=== PATIENT | female | born 1955 | race Caucasian/White ===

== ENCOUNTER 2017-12-29 15:05 | Emergency (ER) | payer OTHER ==
[2017-12-29 15:24] VITALS: BP 154/88; PULSE 98; RESP 20; TEMP 99.7; O2SAT 96
[2017-12-29] MEDS ORDERED: Lidocaine 1% Inj (20ml) INFIL STA (16:13)
[2017-12-29] MEDS ORDERED: Tetanus/Diphtheria Toxoids 0.5 ml Syringe IM ONE ×2 (16:13→16:37)
[2017-12-29] MEDS ORDERED: Bacitracin 500 Units/gm Oint Foilpak UD TOP ONE (16:14)
[2017-12-29] MEDS ORDERED: Lidocaine 1% Inj (20ml) ONE (16:34)
[2017-12-29] MEDS ORDERED: Bacitracin 500 Units/gm Oint Foilpak UD ONE (16:37)
--- NOTE | 2017-12-29 17:47 | CT ---
PROCEDURE: CT HEAD WITHOUT CONTRAST. HISTORY: s.p fall, lac to face COMPARISON: None available. TECHNIQUE: Axial computed tomography images were obtained through the head/brain without intravenous contrast. Radiation dose: Total exam DLP = 1126.98 mGy-cm. This CT exam was performed using one or more of the following dose reduction techniques: Automated exposure control, adjustment of the mA and/or kV according to patient size, and/or use of iterative reconstruction technique. FINDINGS: HEMORRHAGE: No intracranial hemorrhage. BRAIN: No mass effect or edema. The umanzor-white matter differentiation appears intact. Please note that MRI with diffusion imaging is more sensitive in the detection of acute ischemic event. VENTRICLES: No hydrocephalus. CALVARIUM: Unremarkable. PARANASAL SINUSES: Unremarkable as visualized. No significant inflammatory changes. MASTOID AIR CELLS: Unremarkable as visualized. No inflammatory changes. OTHER FINDINGS: Deviated nasal septum. IMPRESSION: No acute intracranial pathology identified.
--- NOTE | 2017-12-29 18:04 | C.PDOC ---
History Of Present Illness 62 y/o female brought in by [facility] for evaluation status post missing step and falling forward while walking up steps at work. Patient sustained laceration to right side of head secondary to hitting concrete step. Patient denies loc, vision changes, dizziness, nausea or vomiting. Time Seen by Provider: 12/29/17 16:02 Chief Complaint (Nursing): Abnormal Skin Integrity History Per: Patient History/Exam Limitations: no limitations Onset/Duration Of Symptoms: Hrs Current Symptoms Are (Timing): Still Present Past Medical History Reviewed: Historical Data, Nursing Documentation, Vital Signs Vital Signs: Last Vital Signs Temp 99.7 F H 12/29/17 15:22 Pulse 98 H 12/29/17 15:22 Resp 20 12/29/17 15:22 BP 154/88 H 12/29/17 15:22 Pulse Ox 96 12/29/17 19:05 - Medical History PMH: No Chronic Diseases Surgical History: No Surg Hx Family History: States: No Known Family Hx - Social History Hx Alcohol Use: No Hx Substance Use: No Review Of Systems Eyes: Negative for: Vision Change Cardiovascular: Negative for: Chest Pain Gastrointestinal: Negative for: Nausea, Vomiting Skin: Negative for: Rash Neurological: Positive for: Headache. Negative for: Weakness, Numbness Physical Exam - Physical Exam Appears: Non-toxic, No Acute Distress Skin: Warm, Dry, No Rash Head: Normacephalic, Tenderness (Mild to forehead), Laceration (3cm linear curved to right side of forehead above eyebrow. No active bleeding. ) Eye(s): bilateral: Normal Inspection, PERRL, EOMI Ear(s): Bilateral: Normal Nose: Normal, No Discharge, No Epistaxis, No Tenderness Oral Mucosa: Moist Teeth: Normal Dentition, No Loose, No Avulsed Neck: Normal ROM, Supple Cardiovascular: Rhythm Regular, No Murmur Respiratory: Normal Breath Sounds, No Rales, No Rhonchi, No Stridor, No Wheezing Extremity: Bilateral: Atraumatic, Normal Color And Temperature, Normal ROM Neurological/Psych: Oriented x3, Normal Speech, Normal Motor, Normal Sensation Gait: Steady ED Course And Treatment O2 Sat by Pulse Oximetry: 96 (RA) Pulse Ox Interpretation: Normal - CT Scan/US CT head Other Rad Studies (CT/US): Read By Radiologist, Radiology Report Reviewed CT/US Interpretation: PROCEDURE: CT HEAD WITHOUT CONTRAST. HISTORY: s.p fall , lac to face. COMPARISON: None available. TECHNIQUE: Axial computed tomography images were obtained through the head/brain without intravenous contrast. Radiation dose: Total exam DLP = 1126.98 mGy-cm. This CT exam was performed using one or more of the following dose reduction techniques: Automated exposure control, adjustment of the mA and/or kV according to patient size, and/or use of iterative reconstruction technique. FINDINGS: HEMORRHAGE: No intracranial hemorrhage. BRAIN: No mass effect or edema. The umanzor-white matter differentiation appears intact. Please note that MRI with diffusion imaging is more sensitive in the detection of acute ischemic event. VENTRICLES : No hydrocephalus. CALVARIUM: Unremarkable. PARANASAL SINUSES: Unremarkable as visualized. No significant inflammatory changes. MASTOID AIR CELLS: Unremarkable as visualized. No inflammatory changes. OTHER FINDINGS: Deviated nasal septum. IMPRESSION: No acute intracranial pathology identified. Laceration - Laceration Repair face right side Wound Length (In cm): 3 Description Of Wound: Linear, Clean Wound Cleansed With: Sterile Saline Anesthesia: Lidocaine 1% Wound Examination: Irrigated With Saline, No FB With Wound Exploration Wound Closure: Suture Suture Technique And Material Used: Interrupted (3), Nylon (5-0) Wound Complexity: Simple Medical Decision Making Medical Decision Making: Impression: head injury and laceration to face Plan: * Tylenol * Tetanus * Lac repair * CT Head Progress: Laceration repair by PA, patient tolerated well. Bacitracin applied. Patient instructed on wound care and suture removal in [address] scan reviewed with no ICH. Patient remained alert and oriented in no distress. Patient stable for discharge. Disposition Counseled Patient/Family Regarding: Diagnosis, Need For Followup - Disposition Disposition: HOME/ ROUTINE Disposition Time: 18:04 Condition: GOOD Additional Instructions: Remove dressing in 24 hours. Keep area clean and dry. May wash gently with soap and water, do not use alcohol or iodine solution. Change dressing 1-2 times daily. Return to ER if fever occurs, redness or swelling around wound, pus in the wound. Please follow up with your primary doctor, clinic, or urgent care for suture removal in 7 days Retire el dressing en 24 horas. Mantenga el alicja limpia y seca. Puede lavarse suavemente con agua y jabn, no use alcohol o solucin de yodo. Cambie el aderezo 1-2 veces al da. Vuelva a la sheldon de emergencias si presenta fiebre, enrojecimiento o hinchazn alrededor de la herida, pus en la herida. Realice un seguimiento con saavedra mdico primario, clnica o atencin urgente para la extracci n de suturas en 7 barone Instructions: Laceration Repair Forms: [facility] (Austrian) Print Language: ESTONIAN - POA Present On Arrival: Falls Or Trauma - Clinical Impression Clinical Impression: Laceration of face, Contusion of head
== END 2017-12-29 18:23 | disposition home or self-care (01) ==
LOC: C.ER 15:05
DX: S01.81XA Laceration without foreign body of other part of head, initial encounter (principal); W10.9XXA Fall (on) (from) unspecified stairs and steps, initial encounter; Y99.0 Civilian activity done for income or pay; Z23 Encounter for immunization

== ENCOUNTER 2018-01-05 10:19 | Emergency (ER) | payer OTHER ==
[2018-01-05 10:33] VITALS: RESP 18
--- NOTE | 2018-01-05 10:41 | C.PDOC ---
History Of Present Illness 62-year-old female, presents to the emergency department for suture removal. Patient seen in ED on 12/29/17 and had sutures placed to the right side of her face, above eyebrow. Denies any fevers, vomiting, signs of infection. Time Seen by Provider: 01/05/18 10:30 Chief Complaint (Nursing): Suture/Staple Removal History Per: Patient History/Exam Limitations: no limitations Past Medical History Reviewed: Historical Data, Nursing Documentation, Vital Signs Vital Signs: Last Vital Signs Temp 98.0 F 01/05/18 10:25 Pulse 76 01/05/18 10:25 Resp 18 01/05/18 10:25 BP 134/80 01/05/18 10:25 Pulse Ox 98 01/05/18 11:03 Family History: States: No Known Family Hx - Social History Hx Alcohol Use: No Hx Substance Use: No Review Of Systems Constitutional: Negative for: Fever, Chills Physical Exam - Physical Exam Appears: Non-toxic, No Acute Distress Skin: Normal Color, Warm, Dry, No Rash Head: Normacephalic, Other (right facial area, above the eyebrow there is a well healing scar. 3 sutures intact. No redness/draining/warmth) Nose: Normal Oral Mucosa: Moist Lips: Normal Appearing Neck: Normal ROM ED Course And Treatment O2 Sat by Pulse Oximetry: 98 (RA) Pulse Ox Interpretation: Normal Medical Decision Making Medical Decision Making: Wound Length: 3cm Three sutures were removed. No warmth, drainage or redness. Disposition Counseled Patient/Family Regarding: Diagnosis, Need For Followup - Disposition Referrals: [facility] [Outside] Disposition: HOME/ ROUTINE Disposition Time: 11:35 Condition: STABLE Additional Instructions: RETURN TO EMERGENCY ROOM IN TWO DAYS FOR REMOVAL OF FINAL SUTURE REGRESAR A LA RODNEY DE EMERGENCIAS EN DOS IBARRA PARA LA REMOCIN DE LA SUTURA FINAL Instructions: Stitches Removal Forms: [facility] (Iraqi) Print Language: JAPANESE - Clinical Impression Clinical Impression: Removal of suture - Scribe Statement The provider has reviewed the documentation as recorded by the Scribe (Mera Servin) All medical record entries made by the Scribe were at my direction and personally dictated by me. I have reviewed the chart and agree that the record accurately reflects my personal performance of the history, physical exam, medical decision making, and the department course for this patient. I have also personally directed, reviewed, and agree with the discharge instructions and disposition.
[2018-01-05 11:46] VITALS: BP 119/74; PULSE 68; TEMP 98.1; O2SAT 99
== END 2018-01-05 11:46 | disposition home or self-care (01) ==
LOC: C.ER 10:19
DX: Z48.02 Encounter for removal of sutures (principal)

== ENCOUNTER 2018-01-07 10:49 | Emergency (ER) | payer OTHER ==
[2018-01-07 11:04] VITALS: BP 118/75; PULSE 76; RESP 18; TEMP 98.3; O2SAT 98
--- NOTE | 2018-01-07 11:16 | C.PDOC ---
History Of Present Illness 62 y/o female presents to ED for suture removal after laceration repair on . Patient reports no pain, no fever, chills or discharge. Time Seen by Provider: 01/07/18 11:07 Chief Complaint (Nursing): Suture/Staple Removal History Per: Patient History/Exam Limitations: no limitations Onset/Duration Of Symptoms: Days Ago Current Symptoms Are (Timing): Better Past Medical History Reviewed: Historical Data, Nursing Documentation, Vital Signs Vital Signs: Last Vital Signs Temp 98.3 F 01/07/18 11:02 Pulse 76 01/07/18 11:02 Resp 18 01/07/18 11:02 BP 118/75 01/07/18 11:02 Pulse Ox 98 01/07/18 11:52 - Medical History PMH: No Chronic Diseases Surgical History: No Surg Hx Family History: States: No Known Family Hx - Social History Hx Alcohol Use: No Hx Substance Use: No - Immunization History Hx Tetanus Toxoid Vaccination: Yes Hx Influenza Vaccination: No Hx Pneumococcal Vaccination: No Review Of Systems Constitutional: Negative for: Fever, Chills Eyes: Negative for: Pain Gastrointestinal: Negative for: Nausea, Vomiting Skin: Negative for: Rash Physical Exam - Physical Exam Appears: Non-toxic, No Acute Distress Skin: Warm, Dry, No Rash Head: Atraumatic, Normacephalic, Other (Suture clean and intact to right eyebrow ) Eye(s): bilateral: Normal Inspection Oral Mucosa: Moist Neck: Normal ROM Extremity: Bilateral: Atraumatic Neurological/Psych: Oriented x3, Normal Speech Gait: Steady ED Course And Treatment O2 Sat by Pulse Oximetry: 98 (RA) Pulse Ox Interpretation: Normal Medical Decision Making Medical Decision Making: Impression: Suture removal Progress: Sutures were removed properly, patient tolerated procedure well and discharged home. 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 - Scribe Statement The provider has reviewed the documentation as recorded by the [employer] All medical record entries made by the Scribe were at my direction and personally dictated by me. I have reviewed the chart and agree that the record accurately reflects my personal performance of the history, physical exam, medical decision making, and the department course for this patient. I have also personally directed, reviewed, and agree with the discharge instructions and disposition.
== END 2018-01-07 11:37 | disposition home or self-care (01) ==
LOC: C.ER 10:49
DX: Z48.02 Encounter for removal of sutures (principal)

== ENCOUNTER 2018-01-09 11:10 | Emergency (ER) | payer OTHER ==
[2018-01-09 11:22] VITALS: BMI 26.2
--- NOTE | 2018-01-09 12:54 | C.PDOC ---
History Of Present Illness Patient is a 62 y/o female who presents to the ED with a complaint of mild pain to the right eyebrow. Patient reports to have had a work-related injury on 12/29 and at the time, was evaluated by [facility] with a negative CT and sutured laceration. Some pain to the area persists for the last few days, prompting ED visit. Patient notes she has not returned to work and requests a work note. Denies any dizziness, weakness, visual changes, KRAFT, or new injuries. No other physical complaints at this time. Time Seen by Provider: 01/09/18 12:26 Chief Complaint (Nursing): Dizziness/Lightheaded History Per: Patient, [employer] Machine Feeder (JANETTE Livingston) History/Exam Limitations: no limitations Onset/Duration Of Symptoms: Days Current Symptoms Are (Timing): Still Present Associated Symptoms Preceding Syncopal Episode: denies: Lightheadedness Fall Associated With With Symptoms: No Past Medical History Reviewed: Historical Data, Nursing Documentation, Vital Signs Vital Signs: Last Vital Signs Temp 98.2 F 01/09/18 13:16 Pulse 62 01/09/18 13:16 Resp 20 01/09/18 13:16 BP 135/78 01/09/18 13:16 Pulse Ox 100 01/09/18 16:10 - Medical History PMH: No Chronic Diseases Surgical History: No Surg Hx Family History: States: No Known Family Hx - Social History Hx Tobacco Use: No Hx Alcohol Use: No Hx Substance Use: No - Immunization History Hx Tetanus Toxoid Vaccination: Yes Hx Influenza Vaccination: No Hx Pneumococcal Vaccination: No Review Of Systems Constitutional: Negative for: Weakness Eyes: Positive for: Other (mild pain to right eyebrow). Negative for: Vision Change Neurological: Negative for: Weakness, Headache, Dizziness Physical Exam - Physical Exam Appears: Well, Non-toxic, No Acute Distress Skin: Normal Color, Warm, Dry, Other ((+) healed laceration to the right eyebrow with mild swelling, no erythema, fluctuance or induration) Head: Atraumatic, Normacephalic Eye(s): bilateral: Normal Inspection, EOMI Nose: Normal Oral Mucosa: Moist Neck: Normal ROM, Supple Chest: Symmetrical Cardiovascular: Rhythm Regular Respiratory: Normal Breath Sounds, No Accessory Muscle Use, No Rales, No Rhonchi , No Wheezing, Other (speaking in full sentences) Gastrointestinal/Abdominal: Soft, No Tenderness Neurological/Psych: Oriented x3, Normal Speech, Normal Cognition, Normal Cranial Nerves (2-12 grossly intact), Other (no focal deficits) ED Course And Treatment O2 Sat by Pulse Oximetry: 100 Progress Note: On reassessment, patient is resting comfortably, and is in no acute distress. Patient is comfortable with going home. Case discussed and pt evaluated by Dr. Villalba, who agrees upon plan and discharge. Disposition - Disposition Disposition: HOME/ ROUTINE Disposition Time: 12:45 Condition: STABLE Additional Instructions: Vaya a saavedra mdico o la clnica en 2-5 barone sin falta, para mas evaluacin. Volver a la sheldon de emergencia en cualquier momento si los sntomas persisten o empeoran. Instructions: Minor Head Injury (DC) Forms: [email or web address] (Vietnamese), Work Excuse Print Language: ISRAELI - Clinical Impression Clinical Impression: Contusion of head, Laceration of face - Scribe Statement The provider has reviewed the documentation as recorded by the Scribe Shauna Neri All medical record entries made by the Scribe were at my direction and personally dictated by me. I have reviewed the chart and agree that the record accurately reflects my personal performance of the history, physical exam, medical decision making, and the department course for this patient. I have also personally directed, reviewed, and agree with the discharge instructions and disposition.
[2018-01-09 13:17] VITALS: BP 135/78; PULSE 62; RESP 20; TEMP 98.2
[2018-01-09 16:05] VITALS: O2SAT 100
== END 2018-01-09 13:18 | disposition home or self-care (01) ==
LOC: C.ER 11:10
DX: S00.93XA Contusion of unspecified part of head, initial encounter (principal); S01.81XA Laceration without foreign body of other part of head, initial encounter; X58.XXXA Exposure to other specified factors, initial encounter